=== PATIENT | female | born 1955 | race Asian ===

== ENCOUNTER 2020-06-06 14:27 | Emergency (ER) | payer OTHER ==
[~2020-06-06] VITALS: Ht 170.2 cm; Wt 75.0 kg
[2020-06-06 14:29] VITALS: BP 117/72
== END 2020-06-06 14:58 | disposition home or self-care (01) ==
LOC: EMS 14:27
DX: L23.4 Allergic contact dermatitis due to dyes (principal)
CPT/HCPCS: 99283; Z7502

== ENCOUNTER 2020-06-15 11:27 | Emergency (ER) | payer OTHER ==
[~2020-06-15] VITALS: Ht 154.9 cm; Wt 65.9 kg
[2020-06-15 11:34] VITALS: BP 114/74
== END 2020-06-15 15:40 | disposition left against medical advice (07) ==
LOC: EMS 11:31
DX: R51.9 Headache, unspecified (principal); Z53.21 Procedure and treatment not carried out due to patient leaving prior to being seen by health care provider

== ENCOUNTER 2022-09-04 10:45 | Emergency (ER) | payer OTHER ==
[~2022-09-04] VITALS: Ht 157.5 cm; Wt 68.2 kg
[2022-09-04] MEDS ORDERED: METF-1211 PO (10:55)
[2022-09-04] MEDS ORDERED: MECL-160 PO (10:55)
[2022-09-04] MEDS ORDERED: LOSA-381 PO (10:55)
[2022-09-04] MEDS ORDERED: SIMV-43 PO (10:55)
[2022-09-04] MEDS ORDERED: LIFI1DRO OU (10:55)
[2022-09-04 15:45] VITALS: BP 135/85
[2022-09-04] MEDS ORDERED: MECLIZINE HCL 25 MG TABLET PO ONE (15:45)
== END 2022-09-04 15:59 | disposition home or self-care (01) ==
LOC: EMS 10:45
DX: H81.399 Other peripheral vertigo, unspecified ear (principal); E11.9 Type 2 diabetes mellitus without complications; E78.00 Pure hypercholesterolemia, unspecified; I10 Essential (primary) hypertension; Z79.84 Long term (current) use of oral hypoglycemic drugs
CPT/HCPCS: 70450; 93005; 99284